=== PATIENT | female | born 1995 ===

== ENCOUNTER 2018-01-09 22:10 | Emergency (ER) | payer SELFPAY ==
[2018-01-10] VITALS: RESP 17
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
[2018-01-10 01:36] LABS: HEMOGLOBIN 11.9 g/dL (12.0-16.0); MEAN CELL VOLUME 83.1 fl (80.0-105.0); MEAN CORPUSCULAR HEMOGLOBIN 29.2 pg (25.0-35.0); MEAN CORPUSCULAR HGB CONC 35.1 g/dl (31.0-37.0); MEAN PLATELET VOLUME 9.2 fl (7.0-11.0); RBC 4.08 10^6/uL (3.5-6.1); RED CELL DISTRIBUTION WIDTH 13.9 % (11.5-14.5); WHITE BLOOD COUNT 9.2 10^3/ul (4.5-11.0)
[2018-01-10 01:46] LABS: ALB/GLOB RATIO 1.2 (1.1-1.8); ALBUMIN 4.1 g/dL (3.0-4.8); ALT/SGPT 20 U/L (7-56); AST/SGOT 18 U/L (14-36); BLOOD UREA NITROGEN 6 mg/dL (7-21); CALCIUM 9.7 mg/dL (8.4-10.5); GFR AFRICAN-AMERICAN > 60; GFR NON-AFRICAN AMERICAN > 60
--- NOTE | 2018-01-10 02:52 | US ---
EXAM: US After First Trimester, Transabdominal CLINICAL HISTORY: 22 years old, female; Pain; Other: Lt pelvic pain; Gestational age or lmp: 10/01/2017; ; Additional info: Left sided pain TECHNIQUE: Real-time transabdominal obstetrical ultrasound of the maternal pelvis and a second or third trimester with image documentation. COMPARISON: No relevant prior studies available. FINDINGS: Fetus: There is a single living intrauterine . Heart rate: Embryonic/ cardiac activity is identified, at a rate of 144 beats per minute. Presentation: Variable. Placenta: The placenta is located posteriorly and is normal. No abruption. Amniotic fluid: Unremarkable. Anatomy: Limited by gestational age. BIOMETRICS Gestational age: Measurements correlate with a mean gestational age of 15 weeks 2 days. DENISE: The estimated date of delivery is 07/02/2018. EFW: 118.4 g BPD: 3 cm HC: 11 cm AC: 9.3 cm FL: 1.7 cm MATERNAL: Uterus: Unremarkable. No myometrial mass. Cervix: Unremarkable as visualized. Closed measuring 3.2 cm. Adnexa: There is a 2.1 x 2.2 x 2.2 cm right ovarian cyst, possible corpus luteal cyst. Free fluid: No free fluid. IMPRESSION: Live intrauterine , with no evidence of early complications. Recommend followup dedicated anatomic survey at 19-21 weeks.
[2018-01-10 02:59] LABS: URINE BILIRUBIN NEGATIVE (NEGATIVE); URINE BLOOD NEGATIVE (NEGATIVE); URINE GLUCOSE (UA) NEGATIVE (NEGATIVE); URINE LEUKOCYTE ESTERASE NEGATIVE Leu/uL (NEGATIVE); URINE PROTEIN NEGATIVE mg/dL (<30 mg/dL); URINE UROBILINOGEN 0.2 E.U./dL (<1 E.U./dL)
[2018-01-10 03:00] LABS: URINE APPEARANCE CLEAR (CLEAR); URINE COLOR YELLOW (YELLOW)
[2018-01-10 03:28] VITALS: BP 120/82; PULSE 80; TEMP 98.1; O2SAT 100
== END 2018-01-10 03:28 | disposition home or self-care (01) ==
LOC: ED 22:10
DX: O26.892 Other specified pregnancy related conditions, second trimester (principal); Z3A.15 15 weeks gestation of pregnancy; R10.9 Unspecified abdominal pain

== ENCOUNTER 2018-02-18 18:05 | Emergency (ER) | payer OTHER ==
[2018-02-18 18:18] VITALS: RESP 18; TEMP 97.6; O2SAT 98; BMI 27.4
[2018-02-18 19:47] LABS: URINE BILIRUBIN NEGATIVE (NEGATIVE); URINE BLOOD NEGATIVE (NEGATIVE); URINE GLUCOSE (UA) NEGATIVE (NEGATIVE); URINE LEUKOCYTE ESTERASE NEGATIVE Leu/uL (NEGATIVE); URINE PROTEIN TRACE mg/dL (<30 mg/dL); URINE UROBILINOGEN 0.2 E.U./dL (<1 E.U./dL)
[2018-02-18 19:49] LABS: URINE APPEARANCE SL CLOUDY (CLEAR); URINE COLOR YELLOW (YELLOW)
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
[2018-02-18 20:19] LABS: URINE RBC 0 - 2 /hpf (0-2); URINE WBC 0 - 2 /hpf (0-6)
[2018-02-18 20:20] LABS: URINE BACTERIA MOD (NEG)
[2018-02-18 20:58] VITALS: BP 116/51; PULSE 83
== END 2018-02-18 20:56 | disposition home or self-care (01) ==
LOC: ED 18:05
DX: M54.2 Cervicalgia (principal); M54.9 Dorsalgia, unspecified; V43.52XA Car driver injured in collision with other type car in traffic accident, initial encounter; Y92.410 Unspecified street and highway as the place of occurrence of the external cause